=== PATIENT | male | born 1970 | race Asian ===

== ENCOUNTER 2019-04-04 10:05 | Emergency (ER) | payer BC ==
[2019-04-04] MEDS: HYDROCODONE/APAP (5/325) TAB PO (10:40)
[2019-04-04] MEDS: KETOROLAC 30 MG INJ IM (10:41)
== END 2019-04-04 11:57 | disposition home or self-care (01) ==
LOC: FTE 11:57
DX: M54.5 Low back pain (principal)
CPT/HCPCS: 72131; 96372; 99285-25